=== PATIENT | female | born 1960 | race Caucasian/White ===

== ENCOUNTER 2018-10-02 20:55 | Emergency (ER) | payer MEDICAID, OTHER ==
[2018-10-02 21:03] VITALS: BP 150/82
[2018-10-02] MEDS: LORazepam 1 MG Tab PO ONE (21:40)
--- NOTE | 2018-10-02 21:41 | EDM.PDOCBH ---
ED HPI GENERAL MEDICAL PROBLEM - General Chief Complaint: Behavioral/Psych Stated Complaint: PANIC ATTACK Time Seen by Provider: 10/02/18 21:21 Source of Information: Reports: Patient History Limitations: Reports: No Limitations - History of Present Illness INITIAL COMMENTS - FREE TEXT/NARRATIVE: The patient presents with an anxiety attack. The patient took her medications and she was laying down to go to sleep when she developed an anxiety attack. She was very anxious and her heart was racing. She denies chest pain or shortness of breath. She has no abdominal pain, nausea or vomiting. She has a history of anxiety but she has not had an anxiety attack in awhile. She was on xanex. She has had a cough and runny nose lately. She does smoke. Onset: Sudden Duration: Minutes: Severity: Moderate Improves with: Reports: None Worsens with: Reports: None Associated Symptoms: Reports: Cough. Denies: Chest Pain, Fever/Chills, Headaches, Nausea/Vomiting, Shortness of Breath - Related Data Allergies Allergy/AdvReac Type Severity Reaction Status Date / Time aspirin Allergy Vomiting Verified 10/02/18 21:01 Home Meds: Home Meds ALPRAZolam [Xanax] 0.5 mg PO BID PRN 11/25/15 [History] Albuterol Sulfate [Proair Respiclick] 2 puff IH Q4H PRN 11/25/15 [History] Beclomethasone Dipropionate [Qvar] 1 puff IH BID 11/25/15 [History] EPINEPHrine [Epinephrine] 0.3 mg IM DAILY PRN 11/25/15 [History] Hydrocodone/Acetaminophen [Hydrocodon-Acetaminophen 5-325] 1 tab PO Q8H PRN [History] Lisinopril/Hydrochlorothiazide [Lisinopril-Hctz 20-12.5 mg Tab] 1 tab PO DAILY 11/25/15 [History] Loratadine [Claritin] 10 mg PO DAILY 11/25/15 [History] Metoprolol Succinate [Toprol XL 100mg] 100 mg PO DAILY 11/25/15 [History] OXcarbazepine [Oxcarbazepine] 2 tab PO BEDTIME 11/25/15 [History] OXcarbazepine [Oxcarbazepine] 600 mg PO DAILY 11/25/15 [History] Prazosin [Minpress] 1 mg PO BEDTIME 11/25/15 [History] QUEtiapine Fumarate [Seroquel] 300 mg PO BEDTIME 11/25/15 [History] atorvaSTATin Calcium [Atorvastatin Calcium] 80 mg PO DAILY 11/25/15 [History] ALPRAZolam [Xanax] 0.5 mg PO BID PRN #20 tablet 10/02/18 [Rx] Past Medical History HEENT History: Reports: Impaired Vision, Other (See Below) Other HEENT History: Wears glasses Cardiovascular History: Reports: High Cholesterol, Hypertension Respiratory History: Reports: Asthma Genitourinary History: Reports: Renal Calculus [employer]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: Musculoskeletal History: Reports: Arthritis, Back Pain, Chronic, Fibromyalgia, Neck Pain, Chronic Other Musculoskeletal History: L4-L5 removed with fusion; chronic pain management Psychiatric History: Reports: Anxiety 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 - Past Surgical History HEENT Surgical History: Reports: Tonsillectomy, Other (See Below) Other HEENT Surgeries/Procedures: Occipital ear clipped GI Surgical History: Reports: Appendectomy Female Surgical History: Reports: Hysterectomy, Salpingo-Oophorectomy Neurological Surgical History: Reports: C-Spine, Laminectomy Musculoskeletal Surgical History: Reports: Arthroscopic Knee Social & Family History - Tobacco Use Smoking Status *Q: Current Every Day Smoker Years of Tobacco use: 40 Packs/Tins Daily: 0.3 - Recreational Drug Use Recreational Drug Use: No ED ROS GENERAL - Review of Systems Review Of Systems: See Below Constitutional: Reports: No Symptoms HEENT: Reports: No Symptoms Respiratory: Reports: Cough. Denies: Shortness of Breath Cardiovascular: Reports: No Symptoms Endocrine: Reports: No Symptoms GI/Abdominal: Reports: No Symptoms : Reports: No Symptoms Musculoskeletal: Reports: No Symptoms Skin: Reports: No Symptoms Psychiatric: Reports: Anxiety ED EXAM, BEHAVIORAL HEALTH - Physical Exam Exam: See Below Exam Limited By: No Limitations General Appearance: Alert, No Apparent Distress Ears: Normal External Exam Nose: Normal Inspection Head: Atraumatic, Normocephalic Neck: Normal Inspection Respiratory/Chest: No Respiratory Distress, Rhonchi (Mild rhonchi that cleared after coughing) Cardiovascular: Regular Rate, Rhythm, No Edema, No Murmur GI/Abdominal: Soft, Non-Tender, No Organomegaly, No Mass Back Exam: Normal Inspection Extremities: Normal Inspection COURSE, BEHAVIORAL HEALTH COMP - Course Vital Signs: Last Vital Signs Temp 97.9 F 10/02/18 21:01 Pulse 115 H 10/02/18 21:01 Resp 18 10/02/18 21:01 BP 150/82 H 10/02/18 21:01 Pulse Ox 94 L 10/02/18 21:01 Orders, Labs, Meds: Medications Discontinued Medications Generic Name Dose Route Start Last Admin Trade Name Freq PRN Reason Stop Dose Admin Lorazepam 1 mg 10/02/18 21:34 Ativan PO 10/02/18 21:35 ONETIME ONE Re-Assessment/Re-Exam: I ordered ativan 1mg by mouth. I will also get her a prescription for xanax. Departure - Departure Time of Disposition: 21:45 Disposition: Home, Self-Care 01 Condition: Good Clinical Impression: Anxiety - Discharge Information *PRESCRIPTION DRUG MONITORING PROGRAM REVIEWED*: No *COPY OF PRESCRIPTION DRUG MONITORING REPORT IN PATIENT DIANA: No Prescriptions: ALPRAZolam [Xanax] 0.5 mg PO BID PRN #20 tablet PRN Reason: Anxiety Referrals: PCP,None [Primary Care Provider] - Laquita Marie PA-C [Physician Software Engineering Specialist] - 1 Week Additional Instructions: Take the xanax as needed for anxiety symptoms. Follow up with Laquita Marie in a week. Please return if you are worse.
== END 2018-10-02 21:56 | disposition home or self-care (01) ==
LOC: JD.ED 20:55
DX: F41.9 Anxiety disorder, unspecified (principal); E78.00 Pure hypercholesterolemia, unspecified; I10 Essential (primary) hypertension; J45.909 Unspecified asthma, uncomplicated; F17.210 Nicotine dependence, cigarettes, uncomplicated; Z79.899 Other long term (current) drug therapy
CPT/HCPCS: 99283; A9270-GY

== ENCOUNTER 2018-11-01 17:41 | Emergency (ER) | payer MEDICAID ==
[2018-11-01 17:55] VITALS: BP 157/91
[2018-11-01] MEDS ORDERED: Sodium Chloride 0.9% 10 ML Syringe FLUSH PRN (18:31)
[2018-11-01] MEDS ORDERED: Ondansetron 4 MG/2 ML SDV IVPUSH ONE (18:32)
[2018-11-01] MEDS ORDERED: HYDROmorphone 0.5 MG/0.5 ML Syringe IVPUSH ONE ×2 (18:32→20:12)
--- NOTE | 2018-11-01 18:33 | EDM.PDOC ---
ED HPI GENERAL MEDICAL PROBLEM - General Chief Complaint: Abdominal Pain Stated Complaint: RUQ PAIN Time Seen by Provider: 11/01/18 17:58 Source of Information: Reports: Patient, RN Notes Reviewed History Limitations: Reports: No Limitations - History of Present Illness INITIAL COMMENTS - FREE TEXT/NARRATIVE: Patient is a 57-year-old female who presents to the ED for the evaluation of right upper quadrant pain. The patient notes that she feels as if she is having a gallbladder attack. The patient has recently moved here from [place] , and was being worked up for this pain and they told her that it might be her gallbladder. Although she did not have any evaluation for this as she was moving. She states that the pain is a constant pain with throbbing and rates it at an 8 out of 10 today. This has been bothering her for the past 2 days and is getting worse. She did have nausea and vomiting today as well. She does not state that the pain radiates anywhere she feels as if it's right behind the rib cage on her right upper abdomen. She took 2 doses of 400 mg ibuprofen today and this did not help much. She notes this is been about the fourth attack she's had since she's moved here from [place] in the last 4 months. She denies any chest pain or shortness of breath. She is a cigarette smoker and smokes about 5-6 cigarettes per day, she has cut back. She smokes marijuana several times a week as well, she does not state she drinks any alcohol. Right Upper Abdomen Pain Score (Numeric/FACES): 8 - Related Data Allergies Allergy/AdvReac Type Severity Reaction Status Date / Time aspirin Allergy Vomiting Verified 10/02/18 21:01 bee pollen Allergy Bronchospas Verified 11/01/18 18:00 ms Home Meds: Home Meds Albuterol Sulfate [Proair Respiclick] 2 puff IH Q4H PRN 11/25/15 [History] EPINEPHrine [Epinephrine] 0.3 mg IM DAILY PRN 11/25/15 [History] Lisinopril/Hydrochlorothiazide [Lisinopril-Hctz 20-12.5 mg Tab] 1 tab PO DAILY 11/25/15 [History] Metoprolol Succinate [Toprol XL 100mg] 100 mg PO DAILY 11/25/15 [History] OXcarbazepine [Oxcarbazepine] 2 tab PO BEDTIME 11/25/15 [History] Prazosin [Minpress] 1 mg PO BEDTIME 11/25/15 [History] QUEtiapine Fumarate [Seroquel] 300 mg PO BEDTIME 11/25/15 [History] atorvaSTATin Calcium [Atorvastatin Calcium] 80 mg PO DAILY 11/25/15 [History] ALPRAZolam [Xanax] 0.5 mg PO DAILY PRN 11/01/18 [History] Fluticasone Propionate 2 spray INH BID 11/01/18 [History] Hyoscyamine Sulfate [Levsin-Sl] 0.125 mg SL ASDIRECTED PRN #10 tab.subl [Rx] Ondansetron [Zofran ODT] 4 mg PO Q8H PRN #28 tab.dis 11/01/18 [Rx] Orphenadrine [Norflex] 100 mg PO BID 11/01/18 [History] Umeclidinium [place] [Incruse Ellipta*] 1 puff INH BID 11/01/18 [History] Past Medical History HEENT History: Reports: Impaired Vision, Other (See Below) Other HEENT History: Wears glasses Cardiovascular History: Reports: High Cholesterol, Hypertension Respiratory History: Reports: Asthma Genitourinary History: Reports: Renal Calculus 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: Musculoskeletal History: Reports: Arthritis, Back Pain, Chronic, Fibromyalgia, Neck Pain, Chronic Other Musculoskeletal History: L4-L5 removed with fusion; chronic pain management Psychiatric History: Reports: Anxiety 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 - Past Surgical History HEENT Surgical History: Reports: Tonsillectomy, Other (See Below) Other HEENT Surgeries/Procedures: Occipital ear clipped GI Surgical History: Reports: Appendectomy Female Surgical History: Reports: Hysterectomy, Salpingo-Oophorectomy Neurological Surgical History: Reports: C-Spine, Laminectomy Musculoskeletal Surgical History: Reports: Arthroscopic Knee Social & Family History - Tobacco Use Smoking Status *Q: Current Every Day Smoker Years of Tobacco use: 45 Packs/Tins Daily: 0.4 - Caffeine Use Caffeine Use: Reports: Coffee, Soda, Tea - Recreational Drug Use Recreational Drug Type: Reports: Marijuana/Hashish Other Recreational Drug Type: few times weekly ED ROS GENERAL - Review of Systems Review Of Systems: See Below Constitutional: Denies: Fever, Chills HEENT: Reports: No Symptoms Respiratory: Reports: No Symptoms Cardiovascular: Reports: No Symptoms Endocrine: Reports: No Symptoms GI/Abdominal: Reports: Abdominal Pain (RUQ), Nausea, Vomiting. Denies: Diarrhea : Denies: Dysuria, Flank Pain, Frequency, Hematuria, Urgency Musculoskeletal: Reports: No Symptoms Skin: Reports: No Symptoms Neurological: Reports: No Symptoms Psychiatric: Reports: No Symptoms Hematologic/Lymphatic: Reports: No Symptoms Immunologic: Reports: No Symptoms ED EXAM, GI/ABD - Physical Exam Exam: See Below Exam Limited By: No Limitations General Appearance: Alert, WD/WN, No Apparent Distress Eyes: Bilateral: Normal Appearance Ears: Normal External Exam Nose: Normal Inspection Throat/Mouth: Normal Inspection, Normal Lips, Normal Teeth, Normal Gums, Normal Oropharynx, Normal Voice, No Airway Compromise Head: Atraumatic, Normocephalic Neck: Normal Inspection Respiratory/Chest: No Respiratory Distress, Lungs Clear, Normal Breath Sounds, No Accessory Muscle Use, Chest Non-Tender Cardiovascular: Normal Peripheral Pulses, Regular Rate, Rhythm, No Murmur GI/Abdominal Exam: Normal Bowel Sounds, Soft, No Organomegaly, No Distention, No Abnormal Bruit, No Mass, Pelvis Stable, Tender (RUQ, horn's sign positive.) . No: Guarding, Rigid, Rebound Back Exam: Normal Inspection, Full Range of Motion. No: CVA Tenderness (L), CVA Tenderness (R) Extremities: Normal Inspection, Normal Capillary Refill Neurological: Alert, Oriented, Normal Cognition, No Motor/Sensory Deficits Psychiatric: Normal Affect, Normal Mood Skin Exam: Warm, Dry, Intact, Normal Color, No Rash Course - Vital Signs Last Recorded V/S: Last Vital Signs Temp 96.9 F 11/01/18 17:54 Pulse 78 11/01/18 17:54 Resp 20 11/01/18 17:54 BP 157/91 H 11/01/18 17:54 Pulse Ox 97 11/01/18 17:54 - Orders/Labs/Meds Orders: Active Orders 24 hr Category Date Time Status Peripheral IV Care [RC] . DIRECTED Care 11/01/18 18:31 Ordered Sodium Chloride 0.9% [Normal Saline] 1,000 ml Med 11/01/18 18:45 Ordered IV ASDIRECTED Sodium Chloride 0.9% [Saline Flush] Med 11/01/18 18:31 Ordered 10 ml FLUSH ASDIRECTED PRN Peripheral IV Insertion Adult [OM.PC] Routine Oth 11/01/18 18:31 Ordered Medication Orders Sodium Chloride (Normal Saline) 1,000 mls @ 500 mls/hr IV ASDIRECTED ALBERTO Last Admin: 11/01/18 19:03 Dose: 500 mls/hr Sodium Chloride (Saline Flush) 10 ml FLUSH ASDIRECTED PRN PRN Reason: Keep Vein Open Last Admin: 11/01/18 19:04 Dose: 10 ml Labs: Laboratory Tests 11/01/18 11/01/18 Range/Units 19:05 19:05 WBC 6.69 (3.98-10.04) K/mm3 RBC 4.97 (3.98-5.22) M/mm3 Hgb 14.6 (11.2-15.7) gm/L Hct 44.3 (34.1-44.9) % MCV 89.1 (79.4-94.8) fl MCH 29.4 (25.6-32.2) pg MCHC 33.0 (32.2-35.5) g/dl RDW Std Deviation 43.1 (36.4-46.3) fL Plt Count 301 (182-369) K/mm3 MPV 9.3 L (9.4-12.3) fl Neutrophils % (Manual) 50 (40-60) % Band Neutrophils % 0 (0-10) % Lymphocytes % (Manual) 44 H (20-40) % Atypical Lymphs % 0 % Monocytes % (Manual) 4 (2-10) % Eosinophils % (Manual) 2 (0.7-5.8) % Basophils % (Manual) 0 L (0.1-1.2) Platelet Estimate Adequate RBC Morph Comment Normal Sodium 139 (136-145) mEq/L Potassium 3.8 (3.5-5.1) mEq/L Chloride 102 (98-107) mEq/L Carbon Dioxide 30 (21-32) mEq/L Anion Gap 10.8 (5-15) BUN 12 (7-18) mg/dL Creatinine 1.0 (0.55-1.02) mg/dL Est Cr Clr Drug Dosing 45.71 mL/min Estimated GFR (MDRD) 57 (>60) mL/min BUN/Creatinine Ratio 12.0 L (14-18) Glucose 90 (74-106) mg/dL Calcium 9.4 (8.5-10.1) mg/dL Total Bilirubin 0.2 (0.2-1.0) mg/dL GGT 27 (5-55) U/L AST 17 (15-37) U/L ALT 25 (14-59) U/L Alkaline Phosphatase 100 (46-116) U/L Total Protein 6.9 (6.4-8.2) g/dl Albumin 3.7 (3.4-5.0) g/dl Globulin 3.2 gm/dL Albumin/Globulin Ratio 1.2 (1-2) Lipase 81 (73-393) U/L Meds: Medications Generic Name Dose Route Start Last Admin Trade Name Freq PRN Reason Stop Dose Admin Sodium Chloride 1,000 mls @ 500 mls/hr 11/01/18 18:45 11/01/18 19:03 Normal Saline IV 500 mls/hr ASDIRECTED ALBERTO Administration Sodium Chloride 10 ml 11/01/18 18:31 11/01/18 19:04 Saline Flush FLUSH 10 ml ASDIRECTED PRN Administration Keep Vein Open Discontinued Medications Generic Name Dose Route Start Last Admin Trade Name Freq PRN Reason Stop Dose Admin Hydromorphone HCl 0.5 mg 11/01/18 18:32 11/01/18 19:04 Dilaudid IVPUSH 11/01/18 18:33 0.5 mg ONETIME ONE Administration Hydromorphone HCl 0.5 mg 11/01/18 20:12 11/01/18 20:16 Dilaudid IVPUSH 11/01/18 20:13 0.5 mg ONETIME ONE Administration Ondansetron HCl 4 mg 11/01/18 18:32 11/01/18 19:03 Zofran IVPUSH 11/01/18 18:33 4 mg ONETIME ONE Administration - Re-Assessments/Exams Free Text/Narrative Re-Assessment/Exam: 11/01/18 18:40 Patient presents to the ED for evaluation of right upper quadrant pain. I have ordered an IV to be placed with an IV fluid bolus to be given, 0.5 mg IV Dilaudid, 4 mg IV Zofran, CBC, CMP, GGT, lipase for initial evaluation. 11/01/18 20:56 Patient's labs are within normal limits, and her ultrasound does not demonstrate any sort of gallbladder stone or gallbladder thickening at this time. Although it is still likely her pain is returning from her gallbladder, will provide a outpatient order for a HIDA scan. Departure - Departure Time of Disposition: 21:07 Disposition: Home, Self-Care 01 Condition: Fair Clinical Impression: RUQ abdominal pain - Discharge Information *PRESCRIPTION DRUG MONITORING PROGRAM REVIEWED*: No *COPY OF PRESCRIPTION DRUG MONITORING REPORT IN PATIENT DIANA: No Prescriptions: Hyoscyamine Sulfate [Levsin-Sl] 0.125 mg SL ASDIRECTED PRN #10 tab.subl PRN Reason: Pain Ondansetron [Zofran ODT] 4 mg PO Q8H PRN #28 tab.dis PRN Reason: Nausea Instructions: Gallbladder Nuclear Scan Referrals: Laquita Marie PA-C [Primary Care Provider] - Forms: ED Department Discharge Additional Instructions: You have been evaluated in the ED tonight for your right upper quadrant pain. Your laboratory evaluation was within normal limits. Your ultrasound did not demonstrate any stones or any gallbladder wall thickening. You have been provided with an outpatient order for a HIDA scan, our radiology department will call to schedule this with you. Please follow up with Laquita Marie with the results of this scan. You have been provided with a prescription for Levsin, a pain medication for gallbladder issues, please take one tab sublingually at the onset of gallbladder pain, this may be repeated in 10 minutes if you do not get pain relief from the first dose. Max 2 doses in one setting. You have also been prescribed a medication for nausea control, please take one tab sublingually every 8 hours as needed for feelings of nausea. Please return to the ED if her symptoms should change or worsen. - My Orders Last 24 Hours: My Active Orders 11/01/18 18:31 Peripheral IV Care [RC] . DIRECTED Sodium Chloride 0.9% [Saline Flush] 10 ml FLUSH ASDIRECTED PRN Peripheral IV Insertion Adult [OM.PC] Routine 11/01/18 18:45 Sodium Chloride 0.9% [Normal Saline] 1,000 ml IV ASDIRECTED - Assessment/Plan Last 24 Hours: My Active Orders 11/01/18 18:31 Peripheral IV Care [RC] . DIRECTED Sodium Chloride 0.9% [Saline Flush] 10 ml FLUSH ASDIRECTED PRN Peripheral IV Insertion Adult [OM.PC] Routine 11/01/18 18:45 Sodium Chloride 0.9% [Normal Saline] 1,000 ml IV ASDIRECTED
[2018-11-01] MEDS ORDERED: Sodium Chloride 0.9% 1,000 ML IV SCH (18:45)
--- NOTE | 2018-11-01 20:52 | US ---
Limited abdominal ultrasound: Multiple real-time images of the upper right abdomen were obtained. Comparison: No prior abdominal imaging. Liver shows no focal abnormality. Gallbladder shows no shadowing gallstones. No gallbladder wall thickening or pericholecystic fluid is seen. Common bile duct measures within normal limits. Right kidney shows mild generalized cortical thinning without hydronephrosis or discrete mass. Right kidney has a length of 10.0 cm. Pancreas is obscured from bowel gas. Inferior vena cava is patent. Portal vein shows normal hepatopedal flow. Impression: 1. Obscured pancreas from bowel gas. 2. Cortical thinning within the right kidney. 3. No additional abnormality is seen on right upper quadrant abdominal ultrasound exam. Diagnostic code #2
== END 2018-11-01 21:17 | disposition home or self-care (01) ==
LOC: JD.ED 17:41
DX: R10.11 Right upper quadrant pain (principal); E78.00 Pure hypercholesterolemia, unspecified; I10 Essential (primary) hypertension; J45.909 Unspecified asthma, uncomplicated; F41.9 Anxiety disorder, unspecified; F17.210 Nicotine dependence, cigarettes, uncomplicated; Z79.899 Other long term (current) drug therapy; Z87.442 Personal history of urinary calculi; Z88.8 Allergy status to other drugs, medicaments and biological substances; Z91.030 Bee allergy status
CPT/HCPCS: 36415; 76705; 80053; 82977; 83690; 85007; 85027; 96361; 96374; 96375; 96376; 99284; J1170; J2405; J7040; 93010

== ENCOUNTER 2019-02-20 11:28 | Emergency (ER) | payer MEDICAID ==
[2019-02-20] MEDS ORDERED: HYDROmorphone 1 MG/ML Syringe IM ONE (12:42)
--- NOTE | 2019-02-20 12:50 | EDM.PDOC ---
<Jessy Nelson - Last Filed: 02/20/19 12:45> ED HPI GENERAL MEDICAL PROBLEM - General Chief Complaint: General Stated Complaint: ENTIRE BODY PAIN Time Seen by Provider: 02/20/19 12:19 Source of Information: Reports: Patient History Limitations: Reports: No Limitations - History of Present Illness INITIAL COMMENTS - FREE TEXT/NARRATIVE: Janina is a pleasant 58 year old female presenting to the ED today c/o severe lower back pain. She states that last night she was walking down the stairs when she started to fall, reached for the handrail to catch herself and in the process twisted her lower back. She has tried heat, ibuprofen, tylenol and norflex with no relief. At this time she states she is only able to take a few steps at a time before she "sees stars" and needs to sit down. She has been unable to have a bowel movement due to the pain it causes in her back. Her history is significant for fibromyalgia and chronic lower back pain. 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, NSAIDS Generalized Pain Score (Numeric/FACES): 10 - Related Data Allergies Allergy/AdvReac Type Severity Reaction Status Date / Time aspirin Allergy Vomiting Verified 02/20/19 11:55 bee pollen Allergy Bronchospas Verified 02/20/19 11:55 ms Home Meds: Home Meds Albuterol Sulfate [Proair Respiclick] 2 puff IH Q4H PRN 11/25/15 [History] EPINEPHrine [Epinephrine] 0.3 mg IM DAILY PRN 11/25/15 [History] Lisinopril/Hydrochlorothiazide [Lisinopril-Hctz 20-12.5 mg Tab] 1 tab PO DAILY 11/25/15 [History] Metoprolol Succinate [Toprol XL 100mg] 100 mg PO DAILY 11/25/15 [History] OXcarbazepine [Oxcarbazepine] 1,200 mg PO BEDTIME 11/25/15 [History] Prazosin [Minpress] 1 mg PO BEDTIME 11/25/15 [History] QUEtiapine Fumarate [Seroquel] 300 mg PO BEDTIME 11/25/15 [History] atorvaSTATin Calcium [Atorvastatin Calcium] 80 mg PO DAILY 11/25/15 [History] ALPRAZolam [Xanax] 0.5 mg PO DAILY PRN 11/01/18 [History] Fluticasone Propionate 2 spray INH BID 11/01/18 [History] Hyoscyamine Sulfate [Levsin-Sl] 0.125 mg SL ASDIRECTED PRN #10 tab.subl [Rx] Ondansetron [Zofran ODT] 4 mg PO Q8H PRN #28 tab.dis 11/01/18 [Rx] Orphenadrine [Norflex] 100 mg PO BID 11/01/18 [History] Umeclidinium [place] [Incruse Ellipta*] 1 puff INH BID 11/01/18 [History] Doxycycline [Vibramycin] 100 mg PO BID #20 cap 12/03/18 [Rx] Hydrocodone/Acetaminophen [[place] 5-325 Tablet] 1 - 2 each PO Q6H PRN #20 tablet 12/03/18 [Rx] Acetaminophen/HYDROcodone [[place] 325-10 MG] 1 tab PO Q4H PRN #15 tab 02/20/19 [ Rx] Past Medical History HEENT History: Reports: Impaired Vision, Other (See Below) Other HEENT History: Wears glasses Cardiovascular History: Reports: High Cholesterol, Hypertension Respiratory History: Reports: Asthma Genitourinary History: Reports: Renal 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: Musculoskeletal History: Reports: Arthritis, Back Pain, Chronic, Fibromyalgia, Neck Pain, Chronic Other Musculoskeletal History: L4-L5 removed with fusion; chronic pain management Psychiatric History: Reports: Anxiety 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 - Past Surgical History HEENT Surgical History: Reports: Tonsillectomy, Other (See Below) Other HEENT Surgeries/Procedures: Occipital ear clipped GI Surgical History: Reports: Appendectomy Female Surgical History: Reports: Hysterectomy, Salpingo-Oophorectomy Neurological Surgical History: Reports: C-Spine, Laminectomy Musculoskeletal Surgical History: Reports: Arthroscopic Knee Social & Family History - Tobacco Use Smoking Status *Q: Current Every Day Smoker Years of Tobacco use: 45 Packs/Tins Daily: 0.3 - Caffeine Use Caffeine Use: Reports: Coffee, Soda - Recreational Drug Use Recreational Drug Use: Yes Drug Use in Last 12 Months: No ED ROS GENERAL - Review of Systems Review Of Systems: See Below Constitutional: Reports: No Symptoms HEENT: Reports: No Symptoms Respiratory: Reports: No Symptoms Cardiovascular: Reports: No Symptoms Endocrine: Reports: No Symptoms GI/Abdominal: Reports: Constipation : Reports: No Symptoms Musculoskeletal: Reports: Back Pain, Muscle Pain, Muscle Stiffness. Denies: Leg Pain Skin: Reports: No Symptoms Neurological: Reports: Difficulty Walking Psychiatric: Reports: No Symptoms Hematologic/Lymphatic: Reports: No Symptoms Immunologic: Reports: No Symptoms ED EXAM, GENERAL - Physical Exam Exam: See Below Exam Limited By: No Limitations General Appearance: Alert, WD/WN, No Apparent Distress Respiratory/Chest: No Respiratory Distress, Lungs Clear, Normal Breath Sounds, No Accessory Muscle Use, Chest Non-Tender Cardiovascular: Normal Peripheral Pulses, Regular Rate, Rhythm, No Edema, No Gallop, No JVD, No Murmur, No Rub Back Exam: Decreased Range of Motion, Paraspinal Tenderness. No: Normal Inspection, Full Range of Motion Extremities: Normal Inspection, Normal Range of Motion, Non-Tender, Normal Capillary Refill, No Pedal Edema Skin Exam: Warm, Dry, Intact, Normal Color, No Rash Course - Vital Signs Last Recorded V/S: Last Vital Signs Temp 97.2 F 02/20/19 11:50 Pulse 77 02/20/19 11:50 Resp 18 02/20/19 11:50 BP 118/70 02/20/19 11:50 Pulse Ox 99 02/20/19 11:50 - Orders/Labs/Meds Meds: Medications Discontinued Medications Generic Name Dose Route Start Last Admin Trade Name Mikieq PRN Reason Stop Dose Admin Hydromorphone HCl 1 mg 02/20/19 12:42 02/20/19 12:55 Dilaudid IM 02/20/19 12:43 1 mg ONETIME ONE Administration Departure - Departure Disposition: Home, Self-Care 01 Clinical Impression: Fibromyalgia muscle pain - Discharge Information Prescriptions: Acetaminophen/HYDROcodone [[place] 325-10 MG] 1 tab PO Q4H PRN #15 tab PRN Reason: Pain Instructions: Myofascial Pain Syndrome and Fibromyalgia Referrals: Laquita Marie PA-C [Primary Care Provider] - Forms: ED Department Discharge Additional Instructions: You were evaluated in the ER today regarding your allover body pain. You were given 1 mg injection of Dilaudid for pain management in the ER, and will be given a prescription for 3 days worth of hydrocodone/acetaminophen, 10/ 325 pills for further management. This was electronic was sent to the [place] [facility]. Please note these medications can be addictive, please try to take as few as possible to gain control of your pain. Do not drive while taking this medication. You may take Tylenol 500 mg ever 6 hours or 600 mg ibuprofen every 6 hours as needed for further pain relief. Do not exceed 4000mg Tylenol or 3200 mg ibuprofen in a 24-hour time span. Please return to the ED if your symptoms should change or worsen. <Daja Chavarria - Last Filed: 02/20/19 13:39> ED HPI GENERAL MEDICAL PROBLEM - History of Present Illness INITIAL COMMENTS - FREE TEXT/NARRATIVE: I have read and reviewed the student's HPI and examined the patient and agree with OTTO Claire-student. Course - Re-Assessments/Exams Free Text/Narrative Re-Assessment/Exam: 02/20/19 13:35 Patient presents to the ED for the evaluation of all over body pain. She did have a fall, this aggravated her fibromyalgia, did order 1 mg Dilaudid for management in the ER, we'll give her 3 days worth of [place] tablets, so she can get back to a normal functioning level of pain. Departure - Departure Time of Disposition: 13:37 Condition: Fair - Discharge Information *PRESCRIPTION DRUG MONITORING PROGRAM REVIEWED*: No
[2019-02-20 13:53] VITALS: BP 115/53; PULSE 66
== END 2019-02-20 13:50 | disposition home or self-care (01) ==
LOC: JD.ED 11:28
DX: M79.7 Fibromyalgia (principal); I10 Essential (primary) hypertension; E78.00 Pure hypercholesterolemia, unspecified; J45.909 Unspecified asthma, uncomplicated; M19.90 Unspecified osteoarthritis, unspecified site; F41.9 Anxiety disorder, unspecified; F17.210 Nicotine dependence, cigarettes, uncomplicated; Z88.8 Allergy status to other drugs, medicaments and biological substances; Z91.030 Bee allergy status; Z79.899 Other long term (current) drug therapy
CPT/HCPCS: 96372; 99283; J1170

== ENCOUNTER 2019-04-06 13:07 | Emergency (ER) | payer MEDICAID ==
[2019-04-06 13:22] VITALS: BP 144/84; PULSE 76
[2019-04-06] MEDS ORDERED: HYDROmorphone 1 MG/ML Syringe IM ONE (13:51)
[2019-04-06] MEDS ORDERED: Ondansetron 4 MG Tab.DIS PO ONE (13:51)
--- NOTE | 2019-04-06 14:01 | EDM.PDOC ---
ED HPI GENERAL MEDICAL PROBLEM - General Chief Complaint: Upper Extremity Injury/Pain Stated Complaint: RT ARM INJURY Time Seen by Provider: 04/06/19 13:19 Source of Information: Reports: Patient, RN Notes Reviewed History Limitations: Reports: No Limitations - History of Present Illness INITIAL COMMENTS - FREE TEXT/NARRATIVE: Patient is a 58-year-old female who presents to the ED for evaluation of right arm pain. Patient states she was outside, and misjudged an incline, that had some snow on it, and she ended up falling and catching herself with an outstretched arm. She complains of pain mostly to the mid forearm, and into the right wrist. Patient denies any numbness or tingling distal to the injury. She further denies any pain into the elbow. She notes a prior history of fibromyalgia. She has not been able to move her arm much due to the pain. She did take 600 mg ibuprofen right after the injury, but this is not seem to be helping much. She has not used any ice to the area as well. She would rate her pain at a 10 out of 10 today. Her primary care provider is Laquita Marie. The patient notes she is right-hand dominant. Right Arm Pain Score (Numeric/FACES): 10 - Related Data Allergies Allergy/AdvReac Type Severity Reaction Status Date / Time aspirin Allergy Vomiting Verified 04/06/19 13:19 bee pollen Allergy Bronchospas Verified 04/06/19 13:19 ms Home Meds: Home Meds Albuterol Sulfate [Proair Respiclick] 2 puff IH Q4H PRN 11/25/15 [History] EPINEPHrine [Epinephrine] 0.3 mg IM DAILY PRN 11/25/15 [History] Lisinopril/Hydrochlorothiazide [Lisinopril-Hctz 20-12.5 mg Tab] 1 tab PO DAILY 11/25/15 [History] Metoprolol Succinate [Toprol XL 100mg] 100 mg PO DAILY 11/25/15 [History] OXcarbazepine [Oxcarbazepine] 1,200 mg PO BEDTIME 11/25/15 [History] Prazosin [Minpress] 1 mg PO BEDTIME 11/25/15 [History] QUEtiapine Fumarate [Seroquel] 300 mg PO BEDTIME 11/25/15 [History] atorvaSTATin Calcium [Atorvastatin Calcium] 80 mg PO DAILY 11/25/15 [History] ALPRAZolam [Xanax] 0.5 mg PO DAILY PRN 11/01/18 [History] Fluticasone Propionate 2 spray INH BID 11/01/18 [History] Hyoscyamine Sulfate [Levsin-Sl] 0.125 mg SL ASDIRECTED PRN #10 tab.subl [Rx] Ondansetron [Zofran ODT] 4 mg PO Q8H PRN #28 tab.dis 11/01/18 [Rx] Orphenadrine [Norflex] 100 mg PO BID 11/01/18 [History] Umeclidinium [place] [Incruse Ellipta*] 1 puff INH BID 11/01/18 [History] Doxycycline [Vibramycin] 100 mg PO BID #20 cap 12/03/18 [Rx] Hydrocodone/Acetaminophen [[place] 5-325 Tablet] 1 - 2 each PO Q6H PRN #20 tablet 12/03/18 [Rx] Acetaminophen/HYDROcodone [[place] 325-10 MG] 1 tab PO Q4H PRN #15 tab 02/20/19 [ Rx] Acetaminophen/HYDROcodone [[place] 325-5 MG] 1 tab PO Q6H PRN #28 tablet 04/06/19 [Rx] Past Medical History HEENT History: Reports: Impaired Vision, Other (See Below) Other HEENT History: Wears glasses Cardiovascular History: Reports: High Cholesterol, Hypertension Respiratory History: Reports: Asthma Genitourinary History: Reports: Renal 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: Musculoskeletal History: Reports: Arthritis, Back Pain, Chronic, Fibromyalgia, Neck Pain, Chronic Other Musculoskeletal History: L4-L5 removed with fusion; chronic pain management Psychiatric History: Reports: Addiction, Anxiety 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 - Infectious Disease History Infectious Disease History: Reports: Hepatitis B - Past Surgical History HEENT Surgical History: Reports: Tonsillectomy, Other (See Below) Other HEENT Surgeries/Procedures: Occipital ear clipped GI Surgical History: Reports: Appendectomy Female Surgical History: Reports: Hysterectomy, Salpingo-Oophorectomy Neurological Surgical History: Reports: C-Spine, Laminectomy Musculoskeletal Surgical History: Reports: Arthroscopic Knee Social & Family History - Tobacco Use Smoking Status *Q: Current Every Day Smoker Years of Tobacco use: 40 Packs/Tins Daily: 0.2 - Caffeine Use Caffeine Use: Reports: Coffee - Recreational Drug Use Recreational Drug Use: Yes Drug Use in Last 12 Months: Yes Recreational Drug Type: Reports: Marijuana/Hashish Recreational Drug Last Use: couple days ago Review of Systems - Review of Systems Review Of Systems: Comprehensive ROS is negative, except as noted in HPI. Musculoskeletal: Reports: Arm Pain (Right forearm/wrist), Joint Pain (R wrist). Denies: Joint Swelling Neurological: Denies: Numbness, Tingling ED EXAM, GENERAL - Physical Exam Exam: See Below Exam Limited By: No Limitations General Appearance: Alert, WD/WN, No Apparent Distress Eye Exam: Bilateral Eye: EOMI, Normal Inspection, PERRL Nose: Normal Inspection Throat/Mouth: Normal Inspection, Normal Lips, Normal Teeth, Normal Gums, Normal Oropharynx, Normal Voice, No Airway Compromise Head: Atraumatic, Normocephalic Neck: Normal Inspection Respiratory/Chest: No Respiratory Distress, Lungs Clear, Normal Breath Sounds, No Accessory Muscle Use, Chest Non-Tender Cardiovascular: Normal Peripheral Pulses, Regular Rate, Rhythm, No Edema, No Murmur Peripheral Pulses: 3+: Radial (L), Radial (R) Extremities: Normal Inspection, Normal Capillary Refill, Arm Pain (Right forearm ), Limited Range of Motion (of R forearm and wrist d/t pain). No: Joint Swelling Neurological: Alert, Oriented, Normal Cognition, No Motor/Sensory Deficits Psychiatric: Normal Affect, Normal Mood Skin Exam: Warm, Dry, Intact, Normal Color, No Rash ED TRAUMA EXTREMITY PROCEDURES - Splinting Right Upper Extremity Splint Site: right arm Pre-Procedure NV Status: Normal Post-Procedure NV Status: Normal Splint Material: Fiberglass Splint Design: Posterior (long arm), Sling Applied & Form Fitted By: Provider, Tech Provider Post-Splint Application NV Check: NV Status Normal, Good Position Complications: No Course - Vital Signs Last Recorded V/S: Last Vital Signs Temp 97.2 F 04/06/19 13:19 Pulse 76 04/06/19 13:19 Resp 18 04/06/19 13:19 BP 144/84 H 04/06/19 13:19 Pulse Ox 95 04/06/19 13:19 - Orders/Labs/Meds Orders: Active Orders 24 hr Category Date Time Status Forearm 2V Rt [CR] Stat Exams 04/06/19 13:32 Ordered DME for Discharge [COMM] Routine Oth 04/06/19 16:03 Ordered Meds: Medications Discontinued Medications Generic Name Dose Route Start Last Admin Trade Name Freq PRN Reason Stop Dose Admin Hydromorphone HCl 1 mg 04/06/19 13:51 04/06/19 13:59 Dilaudid IM 04/06/19 13:52 1 mg ONETIME ONE Administration Ondansetron HCl 4 mg 04/06/19 13:51 04/06/19 13:59 Zofran Odt PO 04/06/19 13:52 4 mg ONETIME ONE Administration - Re-Assessments/Exams Free Text/Narrative Re-Assessment/Exam: 04/06/19 14:00 Patient presents to the ED for evaluation of right forearm and wrist pain after a fall. Did order 1 mg IM Dilaudid and 4 mg ODT Zofran for initial pain management, and a right forearm and wrist x-ray for further evaluation of her injuries. There is no obvious deformity noted on physical exam, but the patient is exquisitely tender to the area, and cannot move her hand much at all due to the pain. 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 04/06/19 14:35 X-rays are done, and demonstrate an area of concern in her right elbow, Dr. Lee reads this is a slight compression fracture of the radial head. He recommends the patient be sent home in either a posterior slab splint, or sling and swath if she would be cooperative and not pronate and supinate arm. Departure - Departure Time of Disposition: 16:05 Disposition: Home, Self-Care 01 Condition: Fair Clinical Impression: Radial head fracture, closed Qualifiers: Encounter type: initial encounter Fracture alignment: nondisplaced Laterality: right Qualified Code(s): S52.124A - Nondisplaced fracture of head of right radius, initial encounter for closed fracture - Discharge Information *PRESCRIPTION DRUG MONITORING PROGRAM REVIEWED*: Yes *COPY OF PRESCRIPTION DRUG MONITORING REPORT IN PATIENT DIANA: No Prescriptions: Acetaminophen/HYDROcodone [[place] 325-5 MG] 1 tab PO Q6H PRN #28 tablet PRN Reason: Pain Instructions: Forearm Fracture, [id number] Referrals: Laquita Marie PA-C [Primary Care Provider] - Forms: ED Department Discharge Additional Instructions: You have been evaluated in the ED for your right arm injury. Your x-ray demonstrated a small radial head fracture. Please use ice as tolerated to the affected area. You may take Tylenol 500 mg or ibuprofen 600mg q6 hrs for pain relief. Please do so until you have a tolerable level of pain with activity. Do not exceed 4000mg tylenol, Do not exceed 3200mg ibuprofen in a 24 hour time period. You were given a prescription for hydrocodone/acetaminophen/325, please take 1 tab every 6 hours as needed for pain relief. This medication can be addictive, please take as few as you possibly can, these can also be constipating, recommend you take a stool softener like MiraLAX if not already doing so and increase your oral fluid intake. Please call Ortho for follow-up and further evaluation Dr. Aranda is our orthopedic surgeon, his office number is [phone]. Please call and set up an appointment as soon as possible for further management. Please return to ED if your symptoms should change or worsen. - My Orders Last 24 Hours: My Active Orders 04/06/19 13:32 Forearm 2V Rt [CR] Stat 04/06/19 16:03 DME for Discharge [COMM] Routine - Assessment/Plan Last 24 Hours: My Active Orders 04/06/19 13:32 Forearm 2V Rt [CR] Stat 04/06/19 16:03 DME for Discharge [COMM] Routine
--- NOTE | 2019-04-08 09:50 | CR ---
Right forearm: Two views of the right forearm were obtained. Comparison: No previous study. Slightly impacted radial neck fracture is seen. No additional fracture or other abnormality is seen. Impression: 1. Slightly impacted radial neck fracture. Diagnostic code #3 This report was dictated in [place] Standard Time
== END 2019-04-06 16:25 | disposition home or self-care (01) ==
LOC: JD.ED 13:07
DX: S52.124A Nondisplaced fracture of head of right radius, initial encounter for closed fracture (principal); E78.5 Hyperlipidemia, unspecified; I10 Essential (primary) hypertension; J45.909 Unspecified asthma, uncomplicated; F41.9 Anxiety disorder, unspecified; Z88.6 Allergy status to analgesic agent; Z91.030 Bee allergy status; Z79.51 Long term (current) use of inhaled steroids; Z79.899 Other long term (current) drug therapy; F17.210 Nicotine dependence, cigarettes, uncomplicated; W18.30XA Fall on same level, unspecified, initial encounter; Y92.89 Other specified places as the place of occurrence of the external cause
CPT/HCPCS: 29125; 73090; 96372; 99283; A9270; J1170; 29105

== ENCOUNTER 2019-04-09 15:34 | Emergency (ER) | payer MEDICAID ==
[2019-04-09 16:00] VITALS: BP 118/79; PULSE 94
[2019-04-09] MEDS ORDERED: Acetaminophen/oxyCODONE 325-5 MG Tab PO ONE (16:19)
[2019-04-09] MEDS ORDERED: Ondansetron 4 MG Tab.DIS PO ONE (16:19)
--- NOTE | 2019-04-09 16:24 | EDM.PDOC ---
ED HPI GENERAL MEDICAL PROBLEM - General Chief Complaint: Upper Extremity Injury/Pain Stated Complaint: RIGHT ARM PAIN Time Seen by Provider: 04/09/19 16:19 Source of Information: Reports: Patient History Limitations: Reports: No Limitations - History of Present Illness INITIAL COMMENTS - FREE TEXT/NARRATIVE: 58-year-old female presents to the ED complaining of severe pain mid forearm of her right arm. Patient was seen over the weekend after she slipped and fell onwrist hand and was identified to have an impacted fracture of the radial head on x-ray of the right forearm. I was here and did review the x-rays with the PA at that time. I have since reviewed the x-rays and no other fractures are identified. Been placed in a posterior slab Ortho-Glass splint and feels that it might be too tight She didn't constant throbbing pain. She is currently using hydrocodone 5/325 mg tablets one every 4-6 hours for pain relief and it's not helping much. She is primarily here for pain relief. I did get into Dr. Varghese 's office but they said without a referral she can't get in. Onset: Sudden Onset Date: 04/06/19 Duration: Day(s):, Getting Worse Location: Reports: Upper Extremity, Right Quality: Reports: Ache (Right mid forearm constant throbbing pain.), Throbbing ( Praveen pain) Severity: Moderate Improves with: Reports: None (8 out of 10) Worsens with: Reports: None Context: Reports: Trauma (Patient slipped and fell on the ice and suffered a). 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 below) (Hydrocodone 5/325 mg tablet when necessary.) Right Arm Pain Score (Numeric/FACES): 8 - Related Data Allergies Allergy/AdvReac Type Severity Reaction Status Date / Time aspirin Allergy Vomiting Verified 04/09/19 16:00 bee pollen Allergy Bronchospas Verified 04/09/19 16:00 ms Home Meds: Home Meds Albuterol Sulfate [Proair Respiclick] 2 puff IH Q4H PRN 11/25/15 [History] EPINEPHrine [Epinephrine] 0.3 mg IM DAILY PRN 11/25/15 [History] Lisinopril/Hydrochlorothiazide [Lisinopril-Hctz 20-12.5 mg Tab] 1 tab PO DAILY 11/25/15 [History] Metoprolol Succinate [Toprol XL 100mg] 100 mg PO DAILY 11/25/15 [History] OXcarbazepine [Oxcarbazepine] 1,200 mg PO BEDTIME 11/25/15 [History] Prazosin [Minpress] 1 mg PO BEDTIME 11/25/15 [History] QUEtiapine Fumarate [Seroquel] 300 mg PO BEDTIME 11/25/15 [History] atorvaSTATin Calcium [Atorvastatin Calcium] 80 mg PO DAILY 11/25/15 [History] ALPRAZolam [Xanax] 0.5 mg PO DAILY PRN 11/01/18 [History] Fluticasone Propionate 2 spray INH BID 11/01/18 [History] Hyoscyamine Sulfate [Levsin-Sl] 0.125 mg SL ASDIRECTED PRN #10 tab.subl [Rx] Ondansetron [Zofran ODT] 4 mg PO Q8H PRN #28 tab.dis 11/01/18 [Rx] Orphenadrine [Norflex] 100 mg PO BID 11/01/18 [History] Umeclidinium [place] [Incruse Ellipta*] 1 puff INH BID 11/01/18 [History] Doxycycline [Vibramycin] 100 mg PO BID #20 cap 12/03/18 [Rx] Hydrocodone/Acetaminophen [[place] 5-325 Tablet] 1 - 2 each PO Q6H PRN #20 tablet 12/03/18 [Rx] Acetaminophen/HYDROcodone [[place] 325-10 MG] 1 tab PO Q4H PRN #15 tab 02/20/19 [ Rx] Acetaminophen/HYDROcodone [[place] 325-5 MG] 1 tab PO Q6H PRN #28 tablet 04/06/19 [Rx] oxyCODONE HCl/Acetaminophen [Percocet 5-325 mg Tablet] 1 - 2 each PO Q4H PRN # 20 tablet 04/09/19 [Rx] Past Medical History HEENT History: Reports: Impaired Vision, Other (See Below) Other HEENT History: Wears glasses Cardiovascular History: Reports: High Cholesterol, Hypertension Respiratory History: Reports: Asthma Genitourinary History: Reports: Renal Calculus 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: Musculoskeletal History: Reports: Arthritis, Back Pain, Chronic, Fibromyalgia, Neck Pain, Chronic Other Musculoskeletal History: L4-L5 removed with fusion; chronic pain management Psychiatric History: Reports: Addiction, Anxiety 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 - Infectious Disease History Infectious Disease History: Reports: Hepatitis B - Past Surgical History HEENT Surgical History: Reports: Tonsillectomy, Other (See Below) Other HEENT Surgeries/Procedures: Occipital ear clipped GI Surgical History: Reports: Appendectomy Female Surgical History: Reports: Hysterectomy, Salpingo-Oophorectomy Neurological Surgical History: Reports: C-Spine, Laminectomy Musculoskeletal Surgical History: Reports: Arthroscopic Knee Social & Family History - Tobacco Use Smoking Status *Q: Current Every Day Smoker Years of Tobacco use: 30 Packs/Tins Daily: 1 - Caffeine Use Caffeine Use: Reports: Coffee - Living Situation & Occupation Living situation: Reports: Single Occupation: Unemployed Review of Systems - Review of Systems Review Of Systems: See Below Constitutional: Denies: Chills, Diaphoresis, Fever, Weakness Eyes: Reports: No Symptoms Ears: Reports: No Symptoms Nose: Reports: No Symptoms Mouth/Throat: Reports: No Symptoms Respiratory: Reports: Shortness of Breath, Cough (Smoker's cough.). Denies: Wheezing, Pleuritic Chest Pain Cardiovascular: Denies: Chest Pain, Edema, Irregular Heart Rate, Lightheadedness , Palpitations, Syncope, Other GI/Abdominal: Reports: Decreased Appetite Genitourinary: Reports: No Symptoms Musculoskeletal: Reports: Arm Pain (Right thumb pain right forearm pain and fall 4 days ago), Hand Pain Skin: Reports: No Symptoms Neurological: Reports: No Symptoms Psychiatric: Reports: Depression, Anxiety, Other (Insomnia) ED EXAM, GENERAL - Physical Exam Exam: See Below Exam Limited By: No Limitations General Appearance: Alert, WD/WN, Moderate Distress (Quite anxious and upset about the severity of her pain. Atraumatic.), Other (Temperature 36.6 pulse is 94 and sinus respiratory is 18 O2 sats 94% on room air of note she is a heavy cigarette smoker. BP 118/79.) Eye Exam: Bilateral Eye: Normal Inspection Throat/Mouth: Normal Lips Peripheral Pulses: 2+: Radial (L), Radial (R) (Normal capillary return to all fingertips within a second.) Extremities: Other (She is an above elbow posterior slab Ortho-Glass splint. Remove the Yomi wrap and the splint to see if this would provide some relief. Cotton padding around the arm and elbow which does not appear to be too tight.) Neurological: Alert, Oriented, CN II-XII Intact, Normal Cognition Psychiatric: Anxious Skin Exam: Warm, Dry, Intact, Normal Color, No Rash ED TRAUMA EXTREMITY PROCEDURES - Splinting Right Upper Extremity Pre-Procedure NV Status: Normal Post-Procedure NV Status: Normal Splint Material: Fiberglass Splint Design: Sugar Tong Applied & Form Fitted By: Provider Provider Post-Splint Application NV Check: NV Status Normal Complications: No Course - Vital Signs Last Recorded V/S: Last Vital Signs Temp 36.6 C 04/09/19 15:57 Pulse 94 04/09/19 15:57 Resp 18 04/09/19 15:57 BP 118/79 04/09/19 15:57 Pulse Ox 94 L 04/09/19 15:57 - Orders/Labs/Meds Orders: Active Orders 24 hr Category Date Time Status DME for Discharge [COMM] Stat Oth 04/09/19 17:53 Ordered Meds: Medications Discontinued Medications Generic Name Dose Route Start Last Admin Trade Name Freq PRN Reason Stop Dose Admin Ondansetron HCl 4 mg 04/09/19 16:19 04/09/19 16:27 Zofran Odt PO 04/09/19 16:20 4 mg ONETIME ONE Administration Oxycodone/Acetaminophen 2 tab 04/09/19 16:19 04/09/19 16:26 Percocet 325-5 Mg PO 04/09/19 16:20 2 tab ONETIME ONE Administration - Radiology Interpretation Free Text/Narrative:: 4-year-old female attends the ED with severe pain in her right mid forearm. Patient slipped and fell on the ice and suffered a compression fracture of the neck of her proximal radial head 4 days ago. She was placed in a Ortho-Glass posterior slab splint to minimize ability to pronate or supinate. She states that she has constant deep aching throbbing pain in the mid aspect of her extensor surface of her forearm that she can't stand. She has been taking hydrocodone 5/3/25 milligram tablet 1 every 6 hours for pain relief and it's not helping. I removed the splint and she has good capillary return to her fingers in spite of being a heavy smoker over the years. She is down to 5 cigarettes a day now. She has good radial and ulnar pulses. Going to give her 2 Percocet tabs 5/3/25 milligrams strength and Zofran 4 mg sublingual. See how she feels in 20 minutes to half hour. I did review the x-rays and they do not reveal any other fractures in the wrist or the forearm bones. - Re-Assessments/Exams Free Text/Narrative Re-Assessment/Exam: 04/09/19 17:25 conduct the bandages and removed the Ortho-Glass splint for 25 minutes and the patient had immense relief of the pain. A lot of pain with any movement of her thumb which I believe is secondary to movement of the extensor muscles in her forearm and she did have a direct blow to these muscles. Look at the x-rays and there are no other fractures in the radius or ulna midshaft bones. Therefore at this time placed her in a sugar tong Ortho-Glass splint to immobilize her arm. She will get a new sling as well. Prescription will be written for Percocet tablets 5/3/25 one or 2 every 4-6 hours needed for pain relief. The hydrocodone doesn't seem to be helping at all. Dr. Aranda's clinic will give her a call within the next day or 2 to arrange a follow-up appointment. There really is not much else to do except time to let heal. Departure - Departure Time of Disposition: 17:34 Disposition: Home, Self-Care 01 Condition: Fair Clinical Impression: Radial head fracture, closed Qualifiers: Encounter type: initial encounter Fracture alignment: nondisplaced Laterality: right Qualified Code(s): S52.124A - Nondisplaced fracture of head of right radius, initial encounter for closed fracture - Discharge Information *PRESCRIPTION DRUG MONITORING PROGRAM REVIEWED*: Not Applicable *COPY OF PRESCRIPTION DRUG MONITORING REPORT IN PATIENT DIANA: Not Applicable Prescriptions: oxyCODONE HCl/Acetaminophen [Percocet 5-325 mg Tablet] 1 - 2 each PO Q4H PRN # 20 tablet PRN Reason: pain relief. Instructions: Radial Head Fracture, [id number] Referrals: Laquita Marie PA-C [Primary Care Provider] - Forms: ED Department Discharge Additional Instructions: Evaluation in the emergency room today in regards to severe pain right mid forearm after falling 4 days ago and diagnosed with a impacted fracture of the head of the right radius. Fracture is in your elbow area. Admit that you did contuse the back of your arm and does have muscles that are likely for low blood in the back of your mid forearm causing current pain syndrome. Also the current Ortho-Glass immobilization was pitching in a couple of areas and was removed. New Ortho-Glass splint applied called a sugar tong splint. Use Percocet tabs 5/3/25 milligrams one or 2 every 4-6 hours necessary for pain relief for the next few days. Should improve quite dramatically over the next 3 days as the blood comes out of the muscles in the right forearm. Dr. Aranda`s office will call you with an appointment time sometime tomorrow. Really is not much else to do. This fracture will heal on its own and usually is not immobilized longer than 10 days. - My Orders Last 24 Hours: My Active Orders 04/09/19 17:53 DME for Discharge [COMM] Stat - Assessment/Plan Last 24 Hours: My Active Orders 04/09/19 17:53 DME for Discharge [COMM] Stat
== END 2019-04-09 18:04 | disposition home or self-care (01) ==
LOC: JD.ED 15:34
DX: S52.124A Nondisplaced fracture of head of right radius, initial encounter for closed fracture (principal); I10 Essential (primary) hypertension; E78.00 Pure hypercholesterolemia, unspecified; J45.909 Unspecified asthma, uncomplicated; F41.9 Anxiety disorder, unspecified; F17.210 Nicotine dependence, cigarettes, uncomplicated; Z88.8 Allergy status to other drugs, medicaments and biological substances; Z91.030 Bee allergy status; Z79.899 Other long term (current) drug therapy; W01.0XXA Fall on same level from slipping, tripping and stumbling without subsequent striking against object, initial encounter
CPT/HCPCS: 29125; 99283; A9270

== ENCOUNTER 2019-06-30 14:05 | Emergency (ER) | payer MEDICAID ==
[2019-06-30] MEDS ORDERED: Ketorolac 60 MG/2 ML SDV IM ONE (14:22)
--- NOTE | 2019-06-30 15:08 | EDM.PDOC ---
ED HPI GENERAL MEDICAL PROBLEM - General Chief Complaint: Lower Extremity Injury/Pain Stated Complaint: RT HIP PAIN Time Seen by Provider: 06/30/19 14:13 Source of Information: Reports: Patient, RN Notes Reviewed - History of Present Illness INITIAL COMMENTS - FREE TEXT/NARRATIVE: 58 yr old female comes in with R low back pain radiating down R leg, severe, "nothing helps". She partially tripped and fell 2 days ago. Hx of prior back problems and surgeries many yrs ago. Did not fall unto her butt or back. Right Hip Pain Score (Numeric/FACES): 9 - Related Data Allergies Allergy/AdvReac Type Severity Reaction Status Date / Time aspirin Allergy Vomiting Verified 06/30/19 14:15 bee pollen Allergy Bronchospas Verified 06/30/19 14:15 ms Home Meds: Home Meds Albuterol Sulfate [Proair Respiclick] 2 puff IH Q4H PRN 11/25/15 [History] EPINEPHrine [Epinephrine] 0.3 mg IM DAILY PRN 11/25/15 [History] Lisinopril/Hydrochlorothiazide [Lisinopril-Hctz 20-12.5 mg Tab] 1 tab PO DAILY 11/25/15 [History] Metoprolol Succinate [Toprol XL 100mg] 100 mg PO DAILY 11/25/15 [History] OXcarbazepine [Oxcarbazepine] 1,200 mg PO BEDTIME 11/25/15 [History] Prazosin [Minpress] 1 mg PO BEDTIME 11/25/15 [History] QUEtiapine Fumarate [Seroquel] 300 mg PO BEDTIME 11/25/15 [History] atorvaSTATin Calcium [Atorvastatin Calcium] 80 mg PO DAILY 11/25/15 [History] ALPRAZolam [Xanax] 0.5 mg PO DAILY PRN 11/01/18 [History] Fluticasone Propionate 2 spray INH BID 11/01/18 [History] Hyoscyamine Sulfate [Levsin-Sl] 0.125 mg SL ASDIRECTED PRN #10 tab.subl [Rx] Ondansetron [Zofran ODT] 4 mg PO Q8H PRN #28 tab.dis 11/01/18 [Rx] Orphenadrine [Norflex] 100 mg PO BID 11/01/18 [History] Umeclidinium [place] [Incruse Ellipta*] 1 puff INH BID 11/01/18 [History] Doxycycline [Vibramycin] 100 mg PO BID #20 cap 12/03/18 [Rx] Hydrocodone/Acetaminophen [[place] 5-325 Tablet] 1 - 2 each PO Q6H PRN #20 tablet 12/03/18 [Rx] Acetaminophen/HYDROcodone [[place] 325-10 MG] 1 tab PO Q4H PRN #15 tab 02/20/19 [ Rx] Acetaminophen/HYDROcodone [[place] 325-5 MG] 1 tab PO Q6H PRN #28 tablet 04/06/19 [Rx] oxyCODONE HCl/Acetaminophen [Percocet 5-325 mg Tablet] 1 - 2 each PO Q4H PRN # 20 tablet 04/09/19 [Rx] Acetaminophen/HYDROcodone [[place] 325-5 MG] 2 tab PO Q6HR PRN #14 tablet [Rx] predniSONE [Prednisone] 50 mg PO DAILY #6 tablet 06/30/19 [Rx] Past Medical History HEENT History: Reports: Impaired Vision, Other (See Below) Other HEENT History: Wears glasses Cardiovascular History: Reports: High Cholesterol, Hypertension Respiratory History: Reports: Asthma Genitourinary History: Reports: Renal Calculus 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: Musculoskeletal History: Reports: Arthritis, Back Pain, Chronic, Fibromyalgia, Neck Pain, Chronic Other Musculoskeletal History: L4-L5 removed with fusion; chronic pain management Psychiatric History: Reports: Addiction, Anxiety 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 - Infectious Disease History Infectious Disease History: Reports: Hepatitis B - Past Surgical History HEENT Surgical History: Reports: Tonsillectomy, Other (See Below) Other HEENT Surgeries/Procedures: Occipital ear clipped GI Surgical History: Reports: Appendectomy Female Surgical History: Reports: Hysterectomy, Salpingo-Oophorectomy Neurological Surgical History: Reports: C-Spine, Laminectomy Musculoskeletal Surgical History: Reports: Arthroscopic Knee Social & Family History - Tobacco Use Smoking Status *Q: Current Every Day Smoker Years of Tobacco use: 40 Packs/Tins Daily: 1 - Caffeine Use Caffeine Use: Reports: Coffee - Living Situation & Occupation Living situation: Reports: Single Occupation: Unemployed Review of Systems - Review of Systems Review Of Systems: See Below Eyes: Reports: No Symptoms Nose: Reports: No Symptoms Cardiovascular: Denies: Chest Pain, Palpitations Musculoskeletal: Reports: Back Pain, Leg Pain Neurological: Denies: Numbness, Tingling, Weakness ED EXAM, GENERAL - Physical Exam Exam: See Below General Appearance: Alert, Moderate Distress Head: Atraumatic Neck: Supple, Non-Tender, Full Range of Motion Respiratory/Chest: No Respiratory Distress, Lungs Clear, Normal Breath Sounds Cardiovascular: Regular Rate, Rhythm Back Exam: Paraspinal Tenderness (diffuse tenderness R low back, no swelling or bruising). No: Vertebral Tenderness Extremities: Normal Inspection, Leg Pain (there is tenderness R lateral hip), Other (pain with R SLR). No: Pedal Edema, Increased Warmth, Redness Neurological: Alert, Oriented, No Motor/Sensory Deficits Skin Exam: Warm, Dry, Normal Color Course - Vital Signs Last Recorded V/S: Last Vital Signs Temp 97.5 F 06/30/19 15:21 Pulse 80 06/30/19 15:21 Resp 20 06/30/19 15:21 BP 157/114 H 06/30/19 15:21 Pulse Ox 97 06/30/19 15:21 - Orders/Labs/Meds Orders: Active Orders 24 hr Category Date Time Status Hip Min 2V or 3V w Pelvis Rt [CR] Stat Exams 06/30/19 14:22 Taken Meds: Medications Discontinued Medications Generic Name Dose Route Start Last Admin Trade Name Freq PRN Reason Stop Dose Admin Ketorolac Tromethamine 60 mg 06/30/19 14:22 06/30/19 14:28 Toradol IM 06/30/19 14:23 60 mg ONETIME ONE Administration Departure - Departure Time of Disposition: 15:43 Disposition: Home, Self-Care 01 Condition: Fair Clinical Impression: Back pain Qualifiers: Back pain location: low back pain Chronicity: acute Back pain laterality: right Sciatica presence: with sciatica Sciatica laterality: sciatica of right side Qualified Code(s): M54.41 - Lumbago with sciatica, right side - Discharge Information Prescriptions: Acetaminophen/HYDROcodone [[place] 325-5 MG] 2 tab PO Q6HR PRN #14 tablet PRN Reason: Pain (Mild 1-3) predniSONE [Prednisone] 50 mg PO DAILY #6 tablet Instructions: Hip Pain Referrals: Laquita Marie PA-C [Primary Care Provider] - Forms: ED Department Discharge Additional Instructions: rest, continue to alternate ice and heat as needed. Prednisone 50 mg daily, first dose this afternoon and than q AM for the next 5 days. Tylenol q 6 to 8 hr for mild to moderate pain or hydrocodone for more severe pain as needed. Prescriptions have been sent electronic to [facility], they do close at 4 PM today so you need to get there before that time to get those filled today. Follow up with your regular medical provider if not much better within 3 to 4 days as expected. Sepsis Event Note - Evaluation Sepsis Screening Result: No Definite Risk - Focused Exam Vital Signs: Vital Signs Temp Pulse Resp BP Pulse Ox 06/30/19 15:21 97.5 F 80 20 157/114 H 97 06/30/19 14:12 97.5 F 92 20 183/115 H 98 Date Exam was Performed: 06/30/19 Time Exam was Performed: 15:39 - My Orders Last 24 Hours: My Active Orders 06/30/19 14:22 Hip Min 2V or 3V w Pelvis Rt [CR] Stat - Assessment/Plan Last 24 Hours: My Active Orders 06/30/19 14:22 Hip Min 2V or 3V w Pelvis Rt [CR] Stat
[2019-06-30 15:28] VITALS: BP 157/114; PULSE 80
--- NOTE | 2019-06-30 18:21 | CR ---
Pelvis and right hip: AP view of the pelvis was obtained as well as AP and slight frog-leg lateral view of the right hip. Mild joint space narrowing is seen within both hips. Prominent acetabulum is noted off the right superior hip which is a normal variant but results in premature degenerative change. Small detached bony density is noted off the right superior lateral right hip. Osteopenia is noted. Degenerative change is noted with lower lumbar spine. Sacroiliac joints appear within normal limits. No discrete fracture or other abnormality is appreciated. Impression: 1. Degenerative change and osteopenia. 2. Nothing acute is identified on AP pelvis or on 2 view right hip exam. Diagnostic code #2 This report was dictated in [place] Standard Time
== END 2019-06-30 15:21 | disposition home or self-care (01) ==
LOC: JD.ED 14:05
DX: M54.41 Lumbago with sciatica, right side (principal); I10 Essential (primary) hypertension; F17.210 Nicotine dependence, cigarettes, uncomplicated; Z88.6 Allergy status to analgesic agent; Z91.030 Bee allergy status; Z79.899 Other long term (current) drug therapy
CPT/HCPCS: 73502; 96372; 99283; J1885

== ENCOUNTER 2019-07-29 14:30 | Emergency (ER) | payer MEDICAID ==
[2019-07-29 14:40] VITALS: BP 145/92; PULSE 99
--- NOTE | 2019-07-29 15:50 | EDM.PDOC ---
ED HPI GENERAL MEDICAL PROBLEM - General Chief Complaint: Back Pain or Injury Stated Complaint: BACK AND HIP PAIN Time Seen by Provider: 07/29/19 15:42 - History of Present Illness INITIAL COMMENTS - FREE TEXT/NARRATIVE: 58-year-old female presents the emergency room with low back pain and right hip pain. The patient denies any recent trauma. The patient has a history of low back surgery, however she is uncertain what they did. Patient was seen here several weeks ago and had a hip x-ray. This showed some degenerative changes but nothing acute. The patient has an appointment with Nimisha Salazar tomorrow to establish. The pain seems to be centralized around her hip more than her back but does have a significant back component with it. She has not had any fevers or chills no abdominal pain no nausea vomiting constipation or diarrhea no burning or frequency with urination no loss of bowel or bladder control Bilateral Lower Back Pain Score (Numeric/FACES): 10 - Related Data Allergies Allergy/AdvReac Type Severity Reaction Status Date / Time aspirin Allergy Vomiting Verified 07/29/19 14:40 bee pollen Allergy Bronchospas Verified 07/29/19 14:40 ms Home Meds: Home Meds Albuterol Sulfate [Proair Respiclick] 2 puff IH Q4H PRN 11/25/15 [History] EPINEPHrine [Epinephrine] 0.3 mg IM DAILY PRN 11/25/15 [History] Lisinopril/Hydrochlorothiazide [Lisinopril-Hctz 20-12.5 mg Tab] 1 tab PO DAILY 11/25/15 [History] Metoprolol Succinate [Toprol XL 100mg] 100 mg PO DAILY 11/25/15 [History] OXcarbazepine [Oxcarbazepine] 1,200 mg PO BEDTIME 11/25/15 [History] Prazosin [Minpress] 1 mg PO BEDTIME 11/25/15 [History] QUEtiapine Fumarate [Seroquel] 300 mg PO BEDTIME 11/25/15 [History] atorvaSTATin Calcium [Atorvastatin Calcium] 80 mg PO DAILY 11/25/15 [History] ALPRAZolam [Xanax] 0.5 mg PO DAILY PRN 11/01/18 [History] Fluticasone Propionate 2 spray INH BID 11/01/18 [History] Ondansetron [Zofran ODT] 4 mg PO Q8H PRN #28 tab.dis 11/01/18 [Rx] Orphenadrine [Norflex] 100 mg PO BID 11/01/18 [History] Umeclidinium Gipsy [Incruse Ellipta*] 1 puff INH BID 11/01/18 [History] Acetaminophen/HYDROcodone [[place] 325-5 MG] 1 tab PO Q4H PRN #10 tablet 07/29/19 [Rx] Past Medical History HEENT History: Reports: Impaired Vision, Other (See Below) Other HEENT History: Wears glasses Cardiovascular History: Reports: High Cholesterol, Hypertension Respiratory History: Reports: Asthma Genitourinary History: Reports: Renal Calculus AVIATION 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: Musculoskeletal History: Reports: Arthritis, Back Pain, Chronic, Fibromyalgia, Neck Pain, Chronic Other Musculoskeletal History: L4-L5 removed with fusion; chronic pain management Psychiatric History: Reports: Addiction, Anxiety Endocrine/Metabolic History: Reports: Obesity/BMI 30+ Hematologic History: Reports: None Immunologic History: Reports: None 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 Dermatologic History: Reports: None - Infectious Disease History Infectious Disease History: Reports: Hepatitis B - Past Surgical History HEENT Surgical History: Reports: Tonsillectomy, Other (See Below) Other HEENT Surgeries/Procedures: Occipital ear clipped GI Surgical History: Reports: Appendectomy Female Surgical History: Reports: Hysterectomy, Salpingo-Oophorectomy Neurological Surgical History: Reports: C-Spine, Laminectomy Musculoskeletal Surgical History: Reports: Arthroscopic Knee Social & Family History - Tobacco Use Smoking Status *Q: Current Every Day Smoker Years of Tobacco use: 45 Packs/Tins Daily: 0.5 - Caffeine Use Caffeine Use: Reports: Coffee, Soda - Recreational Drug Use Recreational Drug Use: Yes Recreational Drug Type: Reports: Marijuana/Hashish - Living Situation & Occupation Living situation: Reports: Single Occupation: Unemployed ED ROS GENERAL - Review of Systems Review Of Systems: See Below Constitutional: Reports: No Symptoms. Denies: Fever, Chills HEENT: Reports: No Symptoms Respiratory: Reports: No Symptoms Cardiovascular: Reports: No Symptoms GI/Abdominal: Reports: No Symptoms ED EXAM,LOWER BACK PAIN/INJURY - Physical Exam Exam: See Below Exam Limited By: No Limitations General Appearance: Alert, No Apparent Distress Head: Atraumatic, Normocephalic Neck: Normal Inspection, Supple, Non-Tender, Full Range of Motion Respiratory/Chest: No Respiratory Distress, Lungs Clear, Normal Breath Sounds Cardiovascular: Regular Rate, Rhythm, No Edema, No Murmur GI/Abdominal: Normal Bowel Sounds, Soft, Non-Tender Back Exam: Normal Inspection, Other (Some vague tenderness in the right side of the paraspinous muscles. Its goes down around her hip and is seems to be more tender along the greater trochanteric of the hip and then gets better as it extends down the leg). No: Vertebral Tenderness Extremities: Other (Pain in the area of the trochanteric bursa of the right hip) Course - Vital Signs Last Recorded V/S: Last Vital Signs Temp 36.5 C 07/29/19 14:37 Pulse 99 07/29/19 14:37 Resp 16 07/29/19 14:37 BP 145/92 H 07/29/19 14:37 Pulse Ox 97 07/29/19 14:37 - Orders/Labs/Meds Meds: Medications Discontinued Medications Generic Name Dose Route Start Last Admin Trade Name Viky PRN Reason Stop Dose Admin Hydrocodone Bitart/Acetaminophen 2 tab 07/29/19 15:52 07/29/19 16:09 [place] 325-5 Mg PO 07/29/19 15:53 2 tab ONETIME ONE Administration - Re-Assessments/Exams Free Text/Narrative Re-Assessment/Exam: 07/29/19 17:09 It was unclear to me what back surgery she has had and she is unable to provide adequate history as to what they did but she does not have any hardware in her back she has a incision over the low back x-ray shows some severe disc space narrowing at L4-5 moderate to space narrowing at L5-S1 endplate sclerosis at L4- L5 she has scattered minimal osteophyte formation at the other endplates it at this point the patient has trochanteric bursitis or the new definition regional trochanteric pain syndrome. She should discuss orthopedic consultation or steroid injections in this area with her new provider. Patient is feeling better I did give her a couple [place] shortly after my initial evaluation of her we will discharge with a few and she can discuss further pain management options with her new provider Departure - Departure Time of Disposition: 17:12 Disposition: Home, Self-Care 01 Clinical Impression: Trochanteric bursitis of right hip - Discharge Information Prescriptions: Acetaminophen/HYDROcodone [[place] 325-5 MG] 1 tab PO Q4H PRN #10 tablet PRN Reason: Pain Referrals: Laquita Marie PA-C [Primary Care Provider] - Forms: ED Department Discharge Additional Instructions: Return to the emergency room with any questions problems or worsening symptoms. Follow-up to establish with here new regular provider tomorrow as scheduled. Discuss possible orthopedic referral for your hip and injection of this area. Use the pain medication only as needed you must allow 12 hours after taking this medication before driving or returning to work Sepsis Event Note - Evaluation Sepsis Screening Result: No Definite Risk - Focused Exam Vital Signs: Vital Signs Temp Pulse Resp BP Pulse Ox 07/29/19 14:37 36.5 C 99 16 145/92 H 97 Date Exam was Performed: 07/29/19 Time Exam was Performed: 17:03
[2019-07-29] MEDS ORDERED: Acetaminophen/HYDROcodone 325-5 MG Tab PO ONE (15:52)
--- NOTE | 2019-07-29 16:33 | CR ---
Lumbar spine: AP, lateral and coned-down lateral views were obtained of the lumbar spine. Comparison: Prior lumbar spine study of 11/25/15. Fairly severe disc space narrowing noted at L4-5 with endplate sclerosis. Moderate disc space narrowing at L5-S1. Mild disc space narrowing at L2-3. Other disc spaces are maintained. Vertebral body heights are maintained. Minimal scattered endplate osteophytes are seen. Pedicles are intact. Visualized transverse and spinous processes are intact. Sacroiliac joints are within normal limits. Impression: 1. Degenerative change as noted above. Degenerative change has slightly progressed from previous exam. Diagnostic code #2 This report was dictated in MDT
== END 2019-07-29 17:23 | disposition home or self-care (01) ==
LOC: JD.ED 14:30
DX: M70.61 Trochanteric bursitis, right hip (principal); I10 Essential (primary) hypertension; E78.00 Pure hypercholesterolemia, unspecified; J45.909 Unspecified asthma, uncomplicated; F41.9 Anxiety disorder, unspecified; E66.9 Obesity, unspecified; Z79.899 Other long term (current) drug therapy; Z88.6 Allergy status to analgesic agent; Z91.030 Bee allergy status
CPT/HCPCS: 72100; 99283; A9270

== ENCOUNTER 2020-04-20 06:46 | Day surgery (SDC) | payer MEDICAID ==
[~2020-04-20 06:46] MED LIST: Acetaminophen 325 MG Tab PO SCH; Albuterol 0.083% 2.5 MG/3 ML Neb Soln NEB ONE; Lidocaine 1%/Sod Bicarbonate in NS 8.4% 1 ML Syringe IDERM PRN; Morphine 8 MG, EPINEPHrine 0.3 MG, Cefuroxime 750 MG, Ketorolac 30 MG, Sodium Chloride ... PRN; Sodium Chloride 0.9% 10 ML Syringe FLUSH PRN; oxyCODONE ER 10 MG TAB.ER PO SCH
[2020-04-20] MEDS: Lactated Ringers 1,000 ML IV SCH ×2 (07:20→11:19)
--- NOTE | 2020-04-20 07:22 | PCM.PREANE ---
Preanesthetic Assessment - Procedure Proposed Procedure: Right total hip arthroplasty - Anesthesia/Transfusion/Family Hx Anesthesia History: Prior Anesthesia Without Reaction Transfusion History: No Prior Transfusion(s) - Review of Systems General: No Symptoms Pulmonary: Cough (chronic smoker's cough, COPD) Cardiovascular: No Symptoms Gastrointestinal: No Symptoms, Other (GERD) Neurological: Pre-Existing Deficit (chronic back pain) Other: Reports: Anxiety - Physical Assessment NPO Status Date: 04/19/20 NPO Status Time: 20:00 Vital Signs: Last Vital Signs Temp 97.1 F 04/20/20 06:45 Pulse 79 04/20/20 06:45 Resp 20 04/20/20 06:45 BP 116/55 L 04/20/20 06:45 Pulse Ox 100 04/20/20 06:45 Height: 1.55 m Weight: 76.204 kg ASA Class: 3 Mental Status: Alert & Oriented x3 Airway Class: Mallampati = 2 Dentition: Reports: Edentulous Thyro-Mental Finger Breadths: 3 Mouth Opening Finger Breadths: 3 ROM/Head Extension: Full Lungs: Decreased Breath Sounds Cardiovascular: Regular Rate, Regular Rhythm - Lab Values: Laboratory Last Values MRSA (PCR) Negative 04/08/20 14:21 - Allergies Allergies/Adverse Reactions: Allergies Allergy/AdvReac Type Severity Reaction Status Date / Time bee pollen Allergy Anaphylactic Verified 04/17/20 13:51 Shock pregabalin [From Lyrica] Allergy Anaphylactic Verified 04/17/20 13:51 Shock aspirin AdvReac Vomiting Verified 04/17/20 13:51 - Acknowledgements Anesthesia Type Planned: General Anesthesia, Spinal, Regional Block (possible FICB postop if needed for pain control) Pt an Appropriate Candidate for the Planned Anesthesia: Yes Alternatives and Risks of Anesthesia Discussed w Pt/Guardian: Yes Pt/Guardian Understands and Agrees with Anesthesia Plan: Yes PreAnesthesia Questionnaire HEENT History: Reports: Impaired Vision, Other (See Below) Other HEENT History: Wears glasses, vocal cord damage, has dentures Cardiovascular History: Reports: High Cholesterol, Hypertension Respiratory History: Reports: Asthma, COPD, SOB Gastrointestinal History: Reports: GERD, Hepatitis Genitourinary History: Reports: Renal Calculus 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: Musculoskeletal History: Reports: Arthritis, Back Pain, Chronic, Fibromyalgia, Neck Pain, Chronic Other Musculoskeletal History: L4-L5 removed with fusion; chronic pain management Psychiatric History: Reports: Addiction, Anxiety, Bipolar, Panic Attack, Other (See Below) Other Psychiatric History: insomnia, night terrors Endocrine/Metabolic History: Reports: Diabetes, Type II, Obesity/BMI 30+ Hematologic History: Reports: None Immunologic History: Reports: None Oncologic (Cancer) History: Reports: Other (See Below) 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 Dermatologic History: Reports: None - Infectious Disease History Infectious Disease History: Reports: Hepatitis B - Past Surgical History Head Surgeries/Procedures: Reports: None HEENT Surgical History: Reports: Tonsillectomy, Other (See Below) Other HEENT Surgeries/Procedures: Occipital ear clipped Cardiovascular Surgical History: Reports: None Respiratory Surgical History: Reports: None GI Surgical History: Reports: None, Appendectomy Female Surgical History: Reports: Hysterectomy, Salpingo-Oophorectomy Endocrine Surgical History: Reports: None Neurological Surgical History: Reports: C-Spine, Laminectomy Musculoskeletal Surgical History: Reports: Arthroscopic Knee Oncologic Surgical History: Reports: None - SUBSTANCE USE Tobacco Use Status *Q: Heavy Tobacco User Recreational Drug Use History: Yes Recreational Drug Type: Reports: Marijuana/Hashish - HOME MEDS Home Medications: Home Meds Albuterol Sulfate [Proair Respiclick] 2 puff IH Q4H PRN 11/25/15 [History] EPINEPHrine [Epinephrine] 0.3 mg IM DAILY PRN 11/25/15 [History] Lisinopril/Hydrochlorothiazide [Lisinopril-Hctz 20-12.5 mg Tab] 1 tab PO DAILY 11/25/15 [History] Metoprolol Succinate [Toprol XL 100mg] 100 mg PO DAILY 11/25/15 [History] OXcarbazepine [Oxcarbazepine] 1,200 mg PO BEDTIME 11/25/15 [History] Prazosin [Minpress] 1 mg PO BEDTIME 11/25/15 [History] QUEtiapine Fumarate [Seroquel] 300 mg PO BEDTIME 11/25/15 [History] atorvaSTATin Calcium [Atorvastatin Calcium] 80 mg PO DAILY 11/25/15 [History] ALPRAZolam [Xanax] 0.5 mg PO DAILY PRN 11/01/18 [History] Cholecalciferol (Vitamin D3) [Vitamin D3] 5,000 unit PO DAILY 04/17/20 [History] Fexofenadine/Pseudoephedrine [Lara-D 12 Hour Tablet] 1 tab PO BID PRN 04/17/20 [History] Rivaroxaban [Xarelto] 10 mg PO DAILY #35 tab 04/20/20 [Rx] oxyCODONE 5 - 10 mg PO Q4H PRN #40 tab 04/20/20 [Rx] - CURRENT (IN HOUSE) MEDS Current Meds: Current Medications Acetaminophen (Tylenol) 975 mg PO ONETIME ALBERTO Stop: 04/20/20 14:00 Last Admin: 04/20/20 07:04 Dose: 975 mg Documented by: Morphine Sulfate 8 mg/Epinephrine HCl 0.3 mg/Cefuroxime Sodium 750 mg/Ketorolac Tromethamine 30 mg/Sodium Chloride 7.9 ml 0 mg .XX ASDIRECTED PRN PRN Reason: Pain Stop: 04/20/20 15:00 Lactated Ringer's (Ringers, Lactated) 1,000 mls @ 125 mls/hr IV ASDIRECTED ALBERTO Stop: 04/20/20 23:00 Lidocaine/Sodium Bicarbonate (Buffered Lidocaine 1% In Ns 8.4%) 0.25 ml IDERM ONETIME PRN PRN Reason: Prior to IV Start Stop: 04/20/20 18:00 Oxycodone HCl (Oxycontin) 10 mg PO ONETIME ALBERTO Stop: 04/20/20 14:00 Last Admin: 04/20/20 07:04 Dose: 10 mg Documented by: Sodium Chloride (Saline Flush) 10 ml FLUSH ASDIRECTED PRN PRN Reason: Keep Vein Open Stop: 04/20/20 18:00 Discontinued Medications Albuterol (Proventil Neb Soln) 2.5 mg NEB ONETIME ONE Stop: 04/20/20 00:02
[2020-04-20] MEDS ORDERED: Bupivacaine 0.25% 10 ML SDV ONE (07:27)
[2020-04-20] MEDS ORDERED: Vancomycin 1 GM SDV ONE (07:27)
[2020-04-20] MEDS ORDERED: Albuterol 0.083% 2.5 MG/3 ML Neb Soln NEB SCH (07:30)
[2020-04-20] MEDS ORDERED: ceFAZolin 1 GM Vial ONE (07:36)
[2020-04-20] MEDS ORDERED: Dexmedetomidine 200 MCG/2 ML SDV ONE (07:36)
[2020-04-20] MEDS ORDERED: Bupivacaine 0.75% 30 ML SDV ONE (07:37)
[2020-04-20] MEDS ORDERED: EPINEPHrine 1 MG/ML SDV ONE (07:37)
[2020-04-20] MEDS ORDERED: Midazolam 1 MG/ML 2 ML SDV ONE ×2 (07:42→08:10)
[2020-04-20] MEDS ORDERED: Propofol 200 MG/20 ML SDV ONE ×2 (08:12→08:18)
[2020-04-20] MEDS ORDERED: Phenylephrine 1% 10 MG/ML SDV ONE (08:31)
[2020-04-20] MEDS ORDERED: Lactated Ringers 1,000 ML ONE (09:13)
--- NOTE | 2020-04-20 10:04 | PCM.POSTAN ---
POST ANESTHESIA ASSESSMENT - MENTAL STATUS Mental Status: Alert, Oriented - VITAL SIGNS Vital Signs: initial VSs : 87/46 , 85, 14RR, 98% RA, 97.1F Last Vital Signs Temp 98.4 F 04/20/20 10:00 Pulse 74 04/20/20 10:00 Resp 19 04/20/20 10:00 BP 95/45 L 04/20/20 10:00 Pulse Ox 98 04/20/20 10:00 - RESPIRATORY Respiratory Status: Respiratory Rate WNL, Airway Patent, O2 Saturation Stable - CARDIOVASCULAR CV Status: Pulse Rate WNL, Low Blood Pressure - GASTROINTESTINAL GI Status: No Symptoms - PAIN Pain Score: 0 (post SAB) - POST OP HYDRATION Hydration Status: Adequate & Stable
--- NOTE | 2020-04-20 10:37 | CR ---
Pelvis and right hip: AP view of the pelvis was obtained as well as crosstable lateral view of the right hip. Prior MRI right hip study of 11/05/19 and prior plain film study of the pelvis and right hip dated 06/30/19. Right hip prosthesis is noted. This has been recently placed. Components are aligned. Small amount of subcutaneous air is seen. Degenerative change is partially visualized within the lower lumbar spine. Phleboliths are seen within the pelvis. No acute fracture is seen. Impression: 1. Recently placed right hip prosthesis which appears normal. 2. Other findings as noted above which are pre-existing. Diagnostic code #2
[2020-04-20] MEDS ORDERED: oxyCODONE 5 MG Tab PO PRN (11:36)
[2020-04-20 14:57] VITALS: PULSE 81
[2020-04-20 16:03] VITALS: BP 103/79
--- NOTE | 2020-04-21 14:31 | PCM48HPAN ---
Post Anesthesia Note - EVALUATION WITHIN 48HRS OF ANESTHETIC Vital Signs in Normal Range: Yes Patient Participated in Evaluation: Yes Respiratory Function Stable: Yes Airway Patent: Yes Cardiovascular Function Stable: Yes Hydration Status Stable: Yes Pain Control Satisfactory: Yes (tolerable) Nausea and Vomiting Control Satisfactory: Yes Mental Status Recovered: Yes Vital Signs: Last Vital Signs Temp 97.9 F 04/20/20 15:27 Pulse 81 04/20/20 14:55 Resp 18 04/20/20 15:35 BP 103/79 04/20/20 15:27 Pulse Ox 96 04/20/20 14:55 - COMMENTS/OBSERVATIONS Free Text/Narrative:: Patient has been ambulating in hallway with physical therapy, reports pain level as tolerable, PO pain medications regimen resumed. Preparing for home discharge
--- NOTE | 2020-04-29 10:28 | PCM.OPNOTE ---
- General Post-Op/Procedure Note Date of Surgery/Procedure: 04/20/20 Operative Procedure(s): right total hip arthroplasty Pre Op Diagnosis: right hip osteoarthrosis Post-Op Diagnosis: Same Anesthesia Technique: Local, MAC, Spinal Primary Surgeon: Antonio Aranda Anesthesia Provider: Mina Brice [employer] Farmworker: Ankita Link [employer] Farmworker: Chelsie Stone EBL in mLs: 150 Complications: None Condition: Good Free Text/Narrative:: 52 cup 5 stem 36-5
--- NOTE | 2020-04-29 10:58 | OR ---
DATE OF OPERATION: 04/20/2020 SURGEON: Antonio Aranda MD OPERATION PERFORMED: Right total hip arthroplasty. PREOPERATIVE DIAGNOSIS: Right hip osteoarthrosis. POSTOPERATIVE DIAGNOSIS: Right hip osteoarthrosis. ANESTHESIA: Local MAC with spinal. ANESTHESIA PROVIDER: Johana Sun. ASSISTANTS: 1. Ankita Link PA-C. 2. Chelsie Stone LPN. ESTIMATED BLOOD LOSS: 150 mL. COMPLICATIONS: None. CONDITION: Stable. IMPLANT: 1. [place] size 52 mm solid Tritanium II acetabular cup. 2. [place] size 5 Accolate 2 stem. 3. Anoop size 36 -5 Biolox femoral head. DESCRIPTION OF PROCEDURE: The patient was identified in the preoperative holding area. Proper site was marked and identified by the surgeon. The patient was taken back to the operative theater where, after adequate anesthesia, the patient was placed in the left lateral decubitus position. An axillary roll was placed. Pegs were then placed. All bony prominences were well padded. The right hip was then sterilely prepped and draped in the usual sterile fashion. OR time-out was performed. The patient received 2 g of IV Ancef. A standard posterior incision was made centered over the greater trochanter. This was taken down to the IT band and gluteal fascia which was incised along the incisional length. A Charnley retractor was then placed. Short external rotators were identified, and takedown of short external rotators as well as capsulotomy was performed from the level of the piriformis down to the lesser trochanter. Hip was then dislocated. Neck cut was completed. Attention was turned to the acetabulum. Anterior and posterior acetabular retractors were placed. Circumferential removal of the labrum was done at this time as well as removal of the pulvinar. Starting with a 48 reamer, I was able to ream up to a 52, which was found to have good bony bleeding bed as well as adequate purchase. A 52 mm Tritanium II acetabular cup was impacted into place, and anatomic position for the patient. The 36 mm liner was then impacted into place, and attention was turned to the femur. Box chisel was used out laterally. Starter awl was placed down the canal. Starting with the 0 broach, I was able to broach up to a size 5, which was found to be rotationally and vertically stable. At this time, the trial implants and the hip was relocated. The patient was found to have a little bit of too long of a leg on the operative side, so we did a -5 trial. This had adequate church of leg lengths and was stable throughout range of motion. Bone hook was used to dislocate the trial implants. The size 5 Accolate 2 stem was then impacted in place, and a 36- 5 Biolox femoral head was impacted onto the stem. Hip was then relocated. A #5 Ethibond suture was used for closure of the short external rotators and capsule. 1 L of Irrisept irrigation was irrigated through the hip along with 1 L pulse lavage irrigation with Ancef. Topical tranexamic acid and vancomycin powder were applied. Periarticular injection was completed. A #2 barbed suture was used for closure of the IT band and gluteal fascia. 2-0 Vicryl was used subcutaneously. Prineo was used for closure of the skin. The patient tolerated the procedure well and was sent to the PACU in stable condition. MMODAL /[id number]
== END 2020-04-20 16:47 | disposition home or self-care (01) ==
LOC: JD.SDS 06:46 → JD.MS 15:42 → JD.SDS 16:47
PROVIDERS: ATTEND Orthopaedic Surgery
DX: M16.11 Unilateral primary osteoarthritis, right hip (principal); G89.29 Other chronic pain; F41.9 Anxiety disorder, unspecified; J44.9 Chronic obstructive pulmonary disease, unspecified; I10 Essential (primary) hypertension; E78.5 Hyperlipidemia, unspecified; F17.210 Nicotine dependence, cigarettes, uncomplicated; E78.00 Pure hypercholesterolemia, unspecified; E11.9 Type 2 diabetes mellitus without complications; E66.9 Obesity, unspecified; Z98.890 Other specified postprocedural states; Z79.899 Other long term (current) drug therapy; Z91.030 Bee allergy status; Z88.8 Allergy status to other drugs, medicaments and biological substances; Z68.31 Body mass index [BMI] 31.0-31.9, adult
CPT/HCPCS: 27130; 36415; 73501; 86850; 86900; 86901; 87641; 94640; 97116; 97161; 97165; A9270; C1776; J0171; J0690; J0697; J1885; J2250; J2270; J2370; J2704; J3370; J3490; J7120; 01214

== ENCOUNTER 2021-01-21 12:23 | Emergency (ER) | payer MEDICAID | END 2021-01-21 12:54 | LOC: JD.ED 12:23 | DX: Z53.21 Procedure and treatment not carried out due to patient leaving prior to being seen by health care provider (principal) ==

== ENCOUNTER 2022-01-29 13:25 | Emergency (ER) | payer MEDICAID ==
[2022-01-29] MEDS ORDERED: Naloxone 2 MG/2 ML Syringe ONE (13:29)
[2022-01-29] MEDS ORDERED: Sodium Chloride 0.9% 1,000 ML IV ONE (13:42)
[2022-01-29 14:35] LABS: ACETAMINOPHEN 2 ug/mL (10-30); ESTIMATED GFR 39 mL/min (>60)
[2022-01-29 14:36] VITALS: BP 98/61; PULSE 74
[2022-01-29] MEDS ORDERED: Sodium Chloride 0.9% 1,000 ML IV SCH (15:15)
== END 2022-01-29 18:48 | disposition home or self-care (01) ==
LOC: JD.ED 13:25
DX: R55 Syncope and collapse (principal); E86.0 Dehydration; I95.9 Hypotension, unspecified; J44.9 Chronic obstructive pulmonary disease, unspecified; F15.10 Other stimulant abuse, uncomplicated; E78.00 Pure hypercholesterolemia, unspecified; I10 Essential (primary) hypertension; E11.9 Type 2 diabetes mellitus without complications; E66.9 Obesity, unspecified; Z68.30 Body mass index [BMI] 30.0-30.9, adult; Z91.030 Bee allergy status; Z88.8 Allergy status to other drugs, medicaments and biological substances; Z88.6 Allergy status to analgesic agent; Z79.899 Other long term (current) drug therapy; Z90.49 Acquired absence of other specified parts of digestive tract; Z90.710 Acquired absence of both cervix and uterus
CPT/HCPCS: 36415; 70450; 71045; 80053; 80143; 80179; 80306; 80307; 81001; 82009; 82803; 83605; 83735; 84443; 85025; 85610; 86140; 93005; 96360; 96361; 99285; J2310; J7030; 93010; 99284

== ENCOUNTER 2023-06-26 19:28 | Emergency (ER) | payer MEDICAID ==
[2023-06-26 21:34] VITALS: BP 138/90; PULSE 105
== END 2023-06-26 21:39 | disposition home or self-care (01) ==
LOC: JD.ED 19:28
DX: J44.9 Chronic obstructive pulmonary disease, unspecified (principal); Z71.1 Person with feared health complaint in whom no diagnosis is made; I10 Essential (primary) hypertension; E78.00 Pure hypercholesterolemia, unspecified; E11.9 Type 2 diabetes mellitus without complications; Z79.899 Other long term (current) drug therapy; Z91.030 Bee allergy status; Z88.8 Allergy status to other drugs, medicaments and biological substances; Z88.6 Allergy status to analgesic agent
CPT/HCPCS: 71046; 71046-26; 99284